=== PATIENT | female | born 1985 | race Two or more races ===

== ENCOUNTER 2019-05-09 20:50 | Emergency (ER) | payer BC, MEDICAID ==
[~2019-05-09] VITALS: Ht 160 cm; Wt 52.2 kg
[2019-05-09 21:28] LABS: Basophils # (auto) 0 uL; Basophils % (auto) 0.2 % (0.0-2.0); Eosinophils # (auto) 0.1 uL; Eosinophils % (auto) 1.1 % (0.0-7.0); Hematocrit 36.8 % (36.0-46.0); Hemoglobin 12.6 g/dL (12.2-16.2); Lymphocytes % (auto) 43.5 % (10.0-50.0); Mean Corpuscular Hemoglobin 29.3 pg (28.0-32.0); Mean Corpuscular Hgb Conc. 34.3 g/dL (32.0-36.0); Mean Corpuscular Volume 85.2 fL (80.0-100.0); Monocytes # (auto) 0.6 uL; Monocytes % (auto) 9.5 % (0.0-12.0); Neutrophils # (auto) 3.1 uL; Neutrophils % (auto) 45.7 % (37.0-80.0); Nucleated Red Blood Cells % 0.1 %; Platelet Count (auto) 188 10^3/uL (140-450); Red Blood Cells 4.31 10^6/uL (4.0-5.20); Red Cell Distribution Width 12.7 % (11.8-14.3); White Blood Cell 6.9 10^3/uL (4.4-10.8)
[2019-05-09 21:34] LABS: Urine Amorphous Crystal FEW /hpf (None Seen); Urine Bacteria FEW /hpf (None Seen); Urine Blood Negative /uL (Negative); Urine Mucus FEW (None Seen); Urine Specific Gravity 1.015 (1.001-1.035); Urine WBC 12 /hpf (0 - 5)
[2019-05-09 21:47] LABS: Albumin 3.5 g/dL (3.4-5.0); Calcium 8.9 mg/dL (8.5-10.1); Potassium 3.6 mmol/L (3.5-5.1)
[2019-05-09 21:51] LABS: Bilirubin, Total 0.3 mg/dL (0.2-1.0); Total Protein 7.3 g/dL (6.4-8.2)
[2019-05-10 03:50] VITALS: BP 108/71
== END 2019-05-10 04:06 | disposition home or self-care (01) ==
LOC: ER 20:55
DX: O46.91 Antepartum hemorrhage, unspecified, first trimester (principal); O23.41 Unspecified infection of urinary tract in pregnancy, first trimester; Z3A.08 8 weeks gestation of pregnancy
CPT/HCPCS: 36415; 76801; 80053; 81001; 84702; 85025

== ENCOUNTER 2023-12-22 11:10 | Emergency (ER) | payer BC, OTHER ==
[~2023-12-22] VITALS: Ht 157.5 cm; Wt 53.0 kg
[2023-12-22 11:30] VITALS: BP 113/73; PULSE 91; RESP 16; O2SAT 98
[2023-12-22 12:11] LABS: Urine Bacteria FEW /hpf (None Seen); Urine Blood 1+ /uL (Negative); Urine Clarity Clear (Clear); Urine Color Light-Yellow (Yellow); Urine Mucus FEW (None Seen); Urine Protein, UAD Negative (Negative); Urine Specific Gravity 1.011 (1.001-1.035); Urine Urobilinogen Normal (Negative); Urine WBC 3 /hpf (0 - 5)
[2023-12-22] MEDS ORDERED: CEPH250C PO (14:26)
== END 2023-12-22 14:39 | disposition home or self-care (01) ==
LOC: ER 11:10
DX: O20.8 Other hemorrhage in early pregnancy (principal); R10.2 Pelvic and perineal pain; O23.41 Unspecified infection of urinary tract in pregnancy, first trimester; N39.0 Urinary tract infection, site not specified; Z3A.12 12 weeks gestation of pregnancy
CPT/HCPCS: 36415; 76801; 81001; 84702

== ENCOUNTER 2024-05-13 06:38 | Observation (INO) | payer OTHER ==
[~2024-05-13 06:38] MED LIST: CEPH250C PO
[2024-05-13] MEDS ORDERED: PREN-96 PO (11:41)
--- NOTE | 2024-05-13 12:53 | DVH ---
BIOPHYSICAL PROFILE HISTORY: AMA, Trisomy 21 Comparison Study: None TECHNIQUE: Multiple real-time grayscale sonographic images through the gravid uterus of the fetus wi th duplex Doppler color flow and M-mode spectral analysis FINDINGS: BIOPHYSICAL PROFILE: breathing score: 2 movement score: 2 tone score: 2 Quantitative DERRICK score: 2 (DERRICK: 30.7 Cm.) Total score: 8 The cervix is not visualized Single live fetus in breech presentation. heart rate 119 beats per minute. Grade 1, anterior placenta without previa or abruption IMPRESSION: Biophysical profile score: 8 DERRICK measures 30.7 cm , polyhydramnios. ascites is visualized.
--- NOTE | 2024-05-13 14:39 | DVHDS2 ---
Physician Discharge Progress N Final Diagnosis: AMA, Down Syndrome Polyhydramnios Secondary Diagnosis: Encounter for Surveillance Operations or Procedures: Operations or Procedures NST/BPP/DERRICK Condition on Discharge: Stable Disposition: Home Discharge Instructions: Diet: Regular Activity: Light activity Follow Up/Referral: as scheduled Medications: N/A Follow Up Care: Discharge Statement: "Patient was advised to return to the ER or call 911 if any headaches, dizz iness, shortness of breath, chest pain, abdominal pain, bleeding, fevers, or worsening of medical condition. Patient was counseled about treatment plan, medications, possible side effects, patientverbalized understanding. All questions were answered to the best of my ability. This discharge took greater then 30 minutes in planning, reviewing documentation, counseling the patient, and discussing with other team members." MARLA MALIK DO May 13, 2024 14:39
== END 2024-05-13 14:51 | disposition home or self-care (01) ==
LOC: UNDOADMOB 11:17 → LDRP 11:17 → UNDODISOB 14:51
PROVIDERS: ADMIT Obstetrics & Gynecology; ATTEND Obstetrics & Gynecology
DX: O40.3XX0 Polyhydramnios, third trimester, not applicable or unspecified (principal); O09.513 Supervision of elderly primigravida, third trimester; O26.893 Other specified pregnancy related conditions, third trimester; Q90.9 Down syndrome, unspecified; Z98.890 Other specified postprocedural states; Z79.899 Other long term (current) drug therapy; Z3A.32 32 weeks gestation of pregnancy
CPT/HCPCS: 59025; 76818; 81002; 94760; G0378

== ENCOUNTER 2024-05-15 08:35 | Observation (INO) | payer OTHER ==
[~2024-05-15] VITALS: Ht 157.5 cm; Wt 65.8 kg
[~2024-05-15 08:35] MED LIST changes: +PREN-96 PO
--- NOTE | 2024-05-15 09:53 | DVH ---
BIOPHYSICAL PROFILE HISTORY: hydrops TECHNIQUE: Multiple transabdominal real-time grayscale sonographic images through the gravid uterus of the fetus with duplex Doppler color flow and M-mode spectral analysis FINDINGS: BIOPHYSICAL PROFILE: breathing score: 2 movement score: 2 tone score: 2 Quantitative DERRICK score: 2 (DERRICK: 30.3 Cm.) Total score: 8/8 Single live fetus in polyhydramnios presentation. heart rate 116 beats per minute. Anterior placenta without previa or abruption IMPRESSION: 1. Biophysical profile score: 8/8 2. Polyhydramnios. HS:Y
[2024-05-15] MEDS: BETAMETHASONE ACET (30mg/5ml) 5ml Vial 6mg/ml IM ONE (10:20)
--- NOTE | 2024-05-15 12:25 | DVHDS2 ---
Physician Discharge Progress N Final Diagnosis: Hydrops IUP 32 wk AMA Down syndrome Polyhydramnios Secondary Diagnosis: Threatened labor Encounter for surveillance Operations or Procedures: Operations or Procedures NST/BPP/DERRICK Celestone #1 of 2 IM injection given for threatened PTL, possibly indicated delivery due to hydrops Commentary: Commentary NST/BPP/DERRICK Condition on Discharge: Guarded Disposition: Home Discharge Instructions: Diet: Regular Activity: No Restrictions, As Tolerated Follow Up/Referral: RTC in 24 hrs for 2nd celestone injection. Scheduled with [facility] high risk for transfer of care (higher level of care) for indications Appt 05/17/24 at 10:00 Dr Crawford at [facility] Medications: N/A Follow Up Care: Discharge Statement: "Patient was advised to return to the ER or call 911 if any headaches, dizziness, shortness of breath, chest pain, abdominal pain, bleeding, fevers, or worsening of medical condition. Patient was counseled about treatment plan, medications, possible side effects, patientverbalized understanding. All questions were answered to the best of my ability. This discharge took greater then 30 minutes in planning, reviewing documentation, counseling the patient, and discussing with other team members." MARLA MALIK DO May 15, 2024 12:25
== END 2024-05-15 11:02 | disposition home or self-care (01) ==
LOC: LDRP 08:35
PROVIDERS: ADMIT Obstetrics & Gynecology; ATTEND Obstetrics & Gynecology
DX: O36.8990 Maternal care for other specified fetal problems, unspecified trimester, not applicable or unspecified (principal); O40.3XX0 Polyhydramnios, third trimester, not applicable or unspecified; O47.03 False labor before 37 completed weeks of gestation, third trimester; O35.8XX0 Maternal care for other (suspected) fetal abnormality and damage, not applicable or unspecified; O09.523 Supervision of elderly multigravida, third trimester; Z3A.32 32 weeks gestation of pregnancy; Z91.040 Latex allergy status
CPT/HCPCS: 59025; 76818; 81002; 96372; G0378; J0702

== ENCOUNTER 2024-05-16 10:23 | Observation (INO) | payer OTHER ==
[~2024-05-16] VITALS: Ht 157.5 cm; Wt 62.1 kg
[2024-05-16] MEDS: BETAMETHASONE ACET (30mg/5ml) 5ml Vial 6mg/ml IM ONE (11:25)
--- NOTE | 2024-05-17 16:06 | DVHDS2 ---
Physician Discharge Progress N Final Diagnosis: ptl Operations or Procedures: Operations or Procedures celestone Condition on Discharge: Good Disposition: Home Discharge Instructions: Diet: Regular Activity: No Restrictions, As Tolerated Medications: na Follow Up Care: Specialist: transferred to [facility] Discharge Statement: "Patient was advised to return to the ER or call 911 if any headaches, dizziness, shortness of breath, chest pain, abdominal pain, bleeding, fevers, or worsening of medical condition. Patient was counseled about treatment plan, medications, possible side effects, patientverbalized understanding. All questions were answered to the best of my ability. This discharge took greater then 30 minutes in planning, reviewing documentation, counseling the patient, and discussing with other team members." DANYELLE BREWSTER DO May 17, 2024 16:06
== END 2024-05-16 11:51 | disposition home or self-care (01) ==
LOC: LDRP 10:23 → UNDOADMOB 10:23 → LDRP 10:42 → UNDODISOB 11:51
PROVIDERS: ADMIT Obstetrics & Gynecology; ATTEND Obstetrics & Gynecology
DX: O60.03 Preterm labor without delivery, third trimester (principal); Z3A.33 33 weeks gestation of pregnancy; Z91.040 Latex allergy status; Z79.899 Other long term (current) drug therapy
CPT/HCPCS: 59025; 81002; 96372; G0378; J0702